=== PATIENT | female | born 1955 | race Caucasian/White ===

== ENCOUNTER → 2018-05-03 | Outpatient (CLI) | payer OTHER ==
--- NOTE | 2018-05-04 08:46 | RAD ---
MR#: [id number] Date of Study: 05/03/2018 Ordering Physician: JERILYN HERNANDEZ, Referring Physician: JERILYN HERNANDEZ, Tech: Sailaja Ayers RDMS, RVT, RTR APPROVED REPORT Patient Location: OUT-PATIENT Indications Grayscale images of the bilateral lower extremity arterial vessels reveal moderate diffuse plaque. Spectral waveforms are suggestive of greater than 50% stenosis involving the mid to distal superficia l femoral artery on the right side. Below the knee on the right side there appears to be probable gre ater than 75% stenosis of the posterior tibial artery. Normal albeit monophasic velocities are noted in the peroneal and anterior tibial vessels. On the left from the common femoral artery to the superf icial femoral artery there are mostly biphasic and monophasic waveforms but no gross evidence of sten osis is identified. Below the knee again there is diminished velocity in the posterior tibial artery suggestive of diffuse disease of greater than 75% stenosis. The peroneal velocity is decreased but bi phasic and wave pattern. The anterior tibial velocities are normal and monophasic. Critical Notification Critical Value: No <Conclusion> 1. Probable greater than 50% stenosis involving the mid to distal right SFA. 2. 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
== END | disposition home or self-care (01) ==
LOC: US 10:42
PROVIDERS: ATTEND Internal Medicine Cardiovascular Disease
DX: I73.89 Other specified peripheral vascular diseases (principal); I70.293 Other atherosclerosis of native arteries of extremities, bilateral legs
CPT/HCPCS: 93925

== ENCOUNTER → 2018-10-17 | Outpatient (CLI) | payer OTHER ==
--- NOTE | 2018-10-17 09:34 | RAD ---
EXAM: Bilateral lower extremity arterial Doppler sonogram. HISTORY: Peripheral arterial disease. TECHNIQUE: Dominguez scale and color Doppler sonographic imaging of the lower extremity arteries with spectral waveform analysis was performed. COMPARISON: 05/03/2018. FINDINGS: There is a patent right superficial femoral artery stent. The peak systolic velocities within the stent measure 162 cm/s within its proximal aspect and 55 cm/s within its distal aspect. The peak systolic velocities within the superficial femoral artery proximal and distal to the stent measure 157 cm/s and 112 cm/s, respectively. The bilateral posterior tibial and anterior tibial arteries are occluded. There are abnormal monophasic waveforms within the right popliteal, peroneal and dorsalis pedis arteries with peak systolic velocities of 101 cm/s, 90 cm/s, and the 124 cm/s, respectfully. There are biphasic waveforms within the left popliteal, peroneal and dorsalis pedis arteries with peak systolic velocities of 72 cm/s, 77 cm/s, and 91 cm/s, respectively. There are biphasic waveforms within the right lower extremity arteries from the common femoral artery to the distal superficial femoral artery. These measure 148 cm/s within the common femoral artery, 149 cm/s within the deep femoral artery, 132 cm/s within the proximal superficial femoral artery, and 137 cm/s within the mid superficial femoral artery proximal to the aforementioned superficial femoral artery stent. There are biphasic waveforms within the left lower extremity arteries, with peak systolic velocities of 169 cc/s within the common femoral artery, 114 cm/s within the deep femoral artery, 143 cm/s within the proximal superficial femoral artery, 135 cm/s within the mid superficial femoral artery, and 1 heart and 50 cm/s within the distal superficial femoral artery. There is moderate atherosclerotic plaque throughout the bilateral lower extremity arteries. IMPRESSION: 1. Patent right superficial femoral artery stent. There are abnormal monophasic waveforms within the right lower extremity arteries distal to the stent consistent with hemodynamically significant proximal stenosis and the right anterior and posterior tibial arteries are occluded, new compared to the prior study. 2. 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 3. Moderate atherosclerotic plaque throughout the bilateral lower extremity arteries. Electronically signed by: Rebecca Pierson MD (10/17/2018 9:31 AM) [id number]
== END | disposition home or self-care (01) ==
LOC: US 07:29
PROVIDERS: ATTEND Internal Medicine Cardiovascular Disease
DX: I70.203 Unspecified atherosclerosis of native arteries of extremities, bilateral legs (principal); I77.1 Stricture of artery
CPT/HCPCS: 93925

== ENCOUNTER → 2019-03-07 | Outpatient (CLI) | payer OTHER ==
--- NOTE | 2019-03-07 15:54 | RAD ---
EXAM: US extremity nonvascular-right upper extremity DATE: 03/07/2019 8:00 AM COMPARISON: None INDICATION: Right upper arm lump TECHNIQUE: Longitudinal and transverse imaging with intermittent Doppler sampling completed with attention to region of palpable abnormality in the right upper arm region. FINDINGS/ IMPRESSION: This critical Doppler sonographic evaluation of the right upper arm in the region of palpable abnormality was performed. Normal sonographic evaluation of the soft tissues without discrete soft tissue mass. Electronically signed by: Clayton Vaca MD (03/07/2019 3:51 PM) [facility]
== END | disposition home or self-care (01) ==
LOC: US 07:24
PROVIDERS: ATTEND Specialist
DX: R22.31 Localized swelling, mass and lump, right upper limb (principal)
CPT/HCPCS: 76881

== ENCOUNTER → 2019-07-07 | Outpatient (CLI) | payer OTHER, MEDICAID ==
--- NOTE | 2019-07-07 18:11 | RAD ---
PA and lateral chest. HISTORY: COPD PA and lateral views were taken of the chest. Lungs are free of infiltrates. Heart is normal in size. There is no pleural effusion. There is a density in the left lung base which may have central calcification but a mass is possible. The density was not clearly evident on a portable chest from 2012. Heart is normal in size. Correlation with a more recent chest x-ray would be of benefit or CT. IMPRESSION: 1. Possible nodule or mass left lung base CT recommended. 2. No acute infiltrates. Electronically signed by: Colin Comer MD (07/07/2019 6:08 PM) [id number]
== END | disposition home or self-care (01) ==
LOC: RAD 11:53
PROVIDERS: ATTEND Specialist
DX: J44.1 Chronic obstructive pulmonary disease with (acute) exacerbation (principal)
CPT/HCPCS: 71046

== ENCOUNTER → 2021-09-10 | Outpatient (CLI) | payer MEDICARE, MEDICAID ==
--- NOTE | 2021-09-10 11:19 | RAD ---
EXAM: DUAL ENERGY X-RAY ABSORPTIOMETRY (DEXA). HISTORY: Postmenopausal screening. FINDINGS: The lowest measured T-score is -1.1 in the right femoral neck, based on a bone mineral dens ity of 0.891 g/cm^2. Refer to the worksheets for full detail. No comparison examinations are available. IMPRESSION: 1. Low bone mass. Bone mineral density yields a T-score between -1.0 and -2.5. Fracture risk is incre ased. 2. FRAX report: Not calculated. METHODOLOGY: Dual energy x-ray absorptiometry was performed to measure bone mineral density. The foll owing analysis is based on the 2019 Official Positions of the International Society for Clinical Dens itometry: Measurements of the hips and the average of L1-L4 are preferred. When the spine and/or hip cannot be feasibly measured or interpreted, or in the setting of hyperparathyroidism, distal radial bone minera l density may be measured. The lumbar spine T-score is based on the average bone mineral density of L1-L4. In the setting of art ifact or anatomic abnormality, some lumbar levels may be excluded, and the remaining levels used for calculation. A single lumbar level is not used for diagnosis, and if only a single level is available for assessment, another anatomic site will be used to assign a diagnosis. The hip T-score is based on the bone mineral density measurement of the femoral neck or total proxima l femur of either side, whichever is lowest. Bilateral mean values are not used for diagnosis. The forearm T-score is derived from 33% of the distal radius of the nondominant forearm. Electronically signed by: Rebecca Pierson MD (09/10/2021 11:16 AM) [id number]
--- NOTE | 2021-09-11 14:35 | RAD ---
Digital Mammogram Bilateral History: Routine screening Technique: 2-D digital CC and MLO views were obtained. CAD - computer aided detection was utilize d. Comparison: Mammogram from 06/15/2014. Findings: Breast Tissue Density B : There are scattered areas of fibroglandular density There are no suspicious masses, malignant appearing calcifications, or areas of architectural distort ion. Impression: No evidence of malignancy. Assessment: BI-RADS Category 1: Negative. Recommendation: Routine screening mammograms. The patient will receive a letter with the results in the mail. Patient information will be entered i nto the mammography reminder system with a target recall date for the next mammogram. A reminder baron er will be generated. Electronically signed by: Aida Juárez MD (09/11/2021 2:32 PM) [id number]
== END ==
LOC: MAMMO 10:21
PROVIDERS: ATTEND Specialist
DX: Z12.31 Encounter for screening mammogram for malignant neoplasm of breast (principal); M85.88 Other specified disorders of bone density and structure, other site
CPT/HCPCS: 77067; 77080